=== PATIENT | male | born 2000 ===

== ENCOUNTER → 2024-09-13 | Outpatient (REF) | payer BC ==
[2024-09-16 18:56] LABS: SEMEN APPEARANCE OPAQUE (OPAQUE); SEMEN VISCOSITY VISCOUS (LIQUID); SEMEN pH 8.5 (7.0-8.0); WBC CONCENTRATION >1 M/ml (<=1 M/ml)
[2024-09-16 18:57] LABS: TOTAL PROGRESSIVE SPERM 32.3 M/Ejac.
== END ==
LOC: M LAB REF 14:52
PROVIDERS: ATTEND Obstetrics & Gynecology
DX: N46.9 Male infertility, unspecified (principal)